=== PATIENT | male | born 1995 | race Caucasian/White ===

== ENCOUNTER 2017-09-04 19:35 | Emergency (ER) | payer OTHER ==
--- NOTE | 2017-09-04 19:43 | PDOC ---
Rapid Medical Evaluation Time Seen by Provider: 09/04/17 19:40 Medical Evaluation: Allergies Allergy/AdvReac Type Severity Reaction Status Date / Time No Known Allergies Allergy Unverified 06/05/15 16:00 I have performed a brief in-person evaluation of this patient. The patient presents with a chief complaint of: feels like he's having a panic attack; has had them before Pertinent physical exam findings: patient appears anxious. Had him take slow deep breaths in triage and he started to feel better I have ordered the following: ekg The patient will proceed to the ED for further evaluation. Discharge Disposition - Diagnosis Panic attack - Referrals - Patient Instructions - Post Discharge Activity
[2017-09-04 19:46] VITALS: BP 141/78; PULSE 100; TEMP 98.6; BMI 23.1
--- NOTE | 2017-09-04 20:18 | PDOC ---
History of Present Illness - General History Source: Patient Exam Limitations: No Limitations <Halina Sanches - Last Filed: 09/04/17 20:55> - General History Source: Patient Exam Limitations: No Limitations - History of Present Illness Initial Comments: 09/04/17 21:30 The patient is a 22 year old male with no reported past medical history presents to the emergency department s/p panic attack. The patient reports he was laying down at a friends house when he experienced left sided chest pain, 30 minutes prior the the ED. The patient reports prior to the pain he was smoking vape, which he reports is an on and off habit. The patient reports left side neck tightness for the past week. The patient reports a hour and half travel recently via [facility] where he ingested a copious amount of alcohol. The patient returned earlier this week, since then reports having occasional intake of alcohol. The patient states a similar incident 1 year prior, he was brought into an ED [facility]. The patient states prior to that ED visit he was using LSD, the providers reports the visit as LSD overdose. The patient reports 2 wks prior to the ED visit the patient experienced chest pain to which he seeked care with his private care physician who stated it was anxiety and prescribed naproxen. Denies headache, fever, chills or cough. Denies nausea, vomiting, diarrhea or constipation. Denies dysuria, hematuria, frequency or urgency to urinate. Allergies: NKDA Surgical history: None reported Social history: Patient reports the use of alcohol. Patient states an on and off use of vape, which he state is an oral fixation. The patient reports a history of LSD use which he state hasnt used since the ED visit. The patient reports a one time use of K2. PCP: None reported. Family history: Stroke (Grandfather), schizophrenia (Grandmother), Diabetes. <Sparkle Meneses - Last Filed: 09/04/17 21:33> - General Chief Complaint: Psychiatric Stated Complaint: CHEST PAIN/ ANXIETY Time Seen by Provider: 09/04/17 19:40 Past History - Past Medical History COPD: No Psychiatric Problems: Yes (anxiety) - Suicide/Smoking/Psychosocial Hx Smoking History: Never smoked Have you smoked in the past 12 months: No Information on smoking cessation initiated: No Hx Alcohol Use: Yes Drug/Substance Use Hx: No Substance Use Type: Alcohol <Halina Sanches - Last Filed: 09/04/17 20:55> <Sparkle Meneses - Last Filed: 09/04/17 21:33> - Past Medical History Allergies/Adverse Reactions: Allergies Allergy/AdvReac Type Severity Reaction Status Date / Time No Known Allergies Allergy Unverified 09/04/17 19:46 Home Medications: Ambulatory Orders NK [No Known Home Medication] 09/04/17 Review of Systems - Review of Systems Able to Perform ROS?: Yes Comments:: 09/04/17 21:30 GENERAL/CONSTITUTIONAL: No fever or chills. No weakness. HEAD, EYES, EARS, NOSE AND THROAT: No change in vision. No ear pain or discharge. No sore throat. CARDIOVASCULAR: (+) Left sided chest pain. No shortness of breath. RESPIRATORY: No cough, wheezing, or hemoptysis. GASTROINTESTINAL: No nausea, vomiting, diarrhea or constipation. GENITOURINARY: No dysuria, frequency, or change in urination. MUSCULOSKELETAL: (+) Posterior neck tightness. No joint or muscle swelling or pain. No back pain. SKIN: No rash NEUROLOGIC: No headache, vertigo, loss of consciousness, or change in strength/ sensation. ENDOCRINE: No increased thirst. No abnormal weight change. HEMATOLOGIC/LYMPHATIC: No anemia, easy bleeding, or history of blood clots. ALLERGIC/IMMUNOLOGIC: No hives or skin allergy. <Sparkle Meneses - Last Filed: 09/04/17 21:33> *Physical Exam - Vital Signs Last Vital Signs Temp Pulse Resp BP Pulse Ox 98.6 F 100 H 18 141/78 100 09/04/17 19:43 09/04/17 19:43 09/04/17 19:43 09/04/17 19:43 09/04/17 19:43 <Halina Sanches - Last Filed: 09/04/17 20:55> - Vital Signs Last Vital Signs Temp Pulse Resp BP Pulse Ox 98.6 F 100 H 18 141/78 100 09/04/17 19:43 09/04/17 19:43 09/04/17 19:43 09/04/17 19:43 09/04/17 19:43 - Physical Exam Comments: 09/04/17 21:31 GENERAL: The patient is in no acute distress. HEAD: Normal with no signs of trauma. EYES: PERRLA, EOMI, sclera anicteric, conjunctiva clear. ENT: Ears normal, nares patent, oropharynx clear without exudates. Moist mucous membranes. NECK: Normal range of motion, supple without lymphadenopathy, JVD, or masses. LUNGS: Breath sounds equal, clear to auscultation bilaterally. No wheezes, and no crackles. HEART:Regular rate and rhythm, normal S1 and S2 without murmur, rub or gallop. ABDOMEN: Soft, nontender, normoactive bowel sounds. No guarding, no rebound. No masses palpable. EXTREMITIES: (+) Right higginbotham bruise. Normal range of motion, no edema. No clubbing or cyanosis. No erythema, or tenderness. NEUROLOGICAL: Cranial nerves II through XII grossly intact. Normal speech. No focal neurological deficits. MUSCULOSKELETAL: Back non-tender to palpation, no CVA tenderness SKIN: Warm, Dry, normal turgor, no rashes or lesions noted. <Sparkle Meneses - Last Filed: 09/04/17 21:33> Medical Decision Making - Medical Decision Making 09/04/17 20:18 EKG: NSR, HR 73 bpm, axis nml, no st elevations or depressions 09/04/17 20:38 Mr Daley is a 22 yo M With no significant past medical history who presents emergency department due to concerns about a panic attack. Patient states he was at a friend's house this afternoon, and approximately 30 minutes prior to arrival he began to have left-sided chest pain which she associates with panic attack. No shortness of breath. No fevers, chills, cough. Patient states at the time of my examination, his chest pain has completely resolved. Patient states that he had a similar episode approximately one year ago. At that time he noted chest pain, went into see his primary care physician who told him that he had a panic attack, and prescribed naproxen. Approximately 2 weeks prior to that, the patient states he had an ER visit for left-sided numbness which was associated with LSD use. Patient denies any drug use at this time however states he intermittently states , last use was this afternoon. He denies any IV drug use. He denies any marijuana use. Patient states that last weekend he had been heavily drinking. He is unable to quantify how much that is. Since then he has been drinking a little bit, which she is also unable to qualify. He does state that he drank heavily last night. Since examination is normal with the exception of a bruise on the right higginbotham. He demonstrates no tachycardia. He has bilateral breath sounds which are equal and clear. No lower abdominal tenderness. Patient's EKG is normal. Pt at this time is refusing CXR Will observe in the ED Will plan to discharge Will ask pt to avoid drug use, avoid heavy alcohol use 09/04/17 20:56 EKG was repeated Sinus rhythm with marked arrhythmia, no st elevations or depressions, t waves upright Upon re assessment, pt states that he reiterates that he does not want a cxr He feels well enough to go home Pt will be encouraged to follow up with his PMD and possibly with a psychiatry clinical impression: anxiety, initial presentation <Halina Sanches - Last Filed: 09/04/17 20:55> *DC/Admit/Observation/Transfer - Discharge Dispostion Decision to Admit order: No <Halina Sanches - Last Filed: 09/04/17 20:55> - Attestations Scribe Attestion: 09/04/17 21:31 Documentation prepared by Sparkle Meneses, acting as medical/surgery registered nurse for Halina Sanches MD. <Sparkle Meneses - Last Filed: 09/04/17 21:33> Diagnosis at time of Disposition: Panic attack, Anxiety - Discharge Dispostion Disposition: HOME Condition at time of disposition: Stable - Patient Instructions Printed Discharge Instructions: Anxiety and Panic Attacks (Alternative Therapy) , DI for Anxiety -- Adult Additional Instructions: Mr Daley Thank you for coming in to the ER today I am happy that you are feeling better Please avoid Vaping, using drugs or heavily drinking alcohol Please contact your primary care physician on ThursdaySeptember 07 for re evaluation If you would like to speak with a psychiatrist, please contact dr Romero If you have any new symptoms, please come back to the ER for re evaluation
--- NOTE | 2017-09-06 22:22 | EKG ---
Test Reason : Blood Pressure : / mmHG Vent. Rate : 073 BPM Atrial Rate : 073 BPM P-R Int : 132 ms QRS Dur : 092 ms QT Int : 362 ms P-R-T Axes : 069 079 057 degrees QTc Int : 398 ms NORMAL SINUS RHYTHM NORMAL ECG NO PREVIOUS ECGS AVAILABLE Confirmed by DARIUS BUTLER MD ([id number]) on 09/06/2017 10:22:16 PM Referred By: Confirmed By:DARIUS BUTLER MD
--- NOTE | 2017-09-06 22:22 | EKG ---
Test Reason : Blood Pressure : / mmHG Vent. Rate : 072 BPM Atrial Rate : 072 BPM P-R Int : 134 ms QRS Dur : 086 ms QT Int : 380 ms P-R-T Axes : 068 078 054 degrees QTc Int : 416 ms SINUS RHYTHM WITH MARKED SINUS ARRHYTHMIA OTHERWISE NORMAL ECG WHEN COMPARED WITH ECG OF 04-SEP-2017 19:53, NO SIGNIFICANT CHANGE WAS FOUND Confirmed by DARIUS BUTLER MD ([id number]) on 09/06/2017 10:22:11 PM Referred By: Confirmed By:DARIUS BUTLER MD
== END 2017-09-04 21:10 | disposition home or self-care (01) ==
LOC: JER 19:35
DX: F41.0 Panic disorder [episodic paroxysmal anxiety] (principal)
CPT/HCPCS: 93005; 93010; 99281-25

== ENCOUNTER 2018-11-13 06:06 | Emergency (ER) | payer OTHER | END 2018-11-13 07:34 | disposition left against medical advice (07) | LOC: JER 06:06 ==